=== PATIENT | female | born 1985 | race African-American/Black ===

== ENCOUNTER 2016-10-07 12:15 | Emergency (ER) | payer OTHER ==
--- NOTE | 2016-10-07 12:27 | PDOC ---
History of Present Illness - General Chief Complaint: Headache Stated Complaint: HEAD ACHE Time Seen by Provider: 10/07/16 12:19 - History of Present Illness Initial Comments: 10/07/16 12:27 Patient is a 30-year-old female, history of Graves' disease, anxiety depression and asthma. She presents to the ER with a complaint of headache since yesterday She describes her pain as ulsating She has also had palpitations (she checked her HR and noted that it was 116) She notes muscle soreness Dizziness Shivering and chills She feels tired, like she is going to fall. She drove here with her Haz[place] lights on because she was fearful that she was going to pass out Pulsating in her head worsens when she bends forward but largely has subsided No cough No dysuria (+) sore throat this am No nausea, vomiting, diarrhea Allergies: Sulfa, shrimp Medications: Synthroid, Naprosyn as needed Family History: Non-contributory Social History: Denies smoking, alcohol use, or IVDU Vital signs on arrival are notable for pulse of Temp 100.7. Review of Systems GENERAL/CONSTITUTIONAL: Yes: generalized weakness No fever or chills. No weakness. No weight change. HEAD, EYES, EARS, NOSE AND THROAT: No change in vision. No ear pain or discharge. No sore throat. Nasal congestion CARDIOVASCULAR: No chest pain or shortness of breath. Intermittent palpitations with no chest pain RESPIRATORY: Postnasal drip, nonproductive cough, no wheezing, or hemoptysis. GASTROINTESTINAL: No nausea, vomiting, diarrhea or constipation. No rectal bleeding. GENITOURINARY: No dysuria, frequency, or change in urination. MUSCULOSKELETAL: No joint or muscle swelling or pain. No neck or back pain. SKIN : No rash or easy bruising. NEUROLOGIC: Right-sided tension headache, no vertigo, loss of consciousness, or loss of sensation. PSYCHIATRIC: Anxious ENDOCRINE: No increased thirst. No abnormal weight change. HEMATOLOGIC/LYMPHATIC: No anemia, easy bleeding, or history of blood clots. ALLERGIC/IMMUNOLOGIC: No hives or skin allergy. No latex allergy. Physical Exam: GENERAL: The patient is awake, alert, and fully oriented, in no acute distress. HEAD: Normal with no signs of trauma. EYES: Pupils equal, round and reactive to light, extraocular movements intact, sclera anicteric, conjunctiva clear. ENT: Ears normal, nares patent, oropharynx clear without exudates. Moist mucous membranes. No uvula deviation. No frontal sinus pressure or pain NECK: Normal range of motion, supple without lymphadenopathy, JVD, or masses. LUNGS: Breath sounds equal, clear to auscultation bilaterally. No wheezes, and no crackles. HEART: Regular rate and rhythm, normal S1 and S2 without murmur, rub or gallop. ABDOMEN: Soft, nontender, normoactive bowel sounds. No guarding, no rebound. No masses. No bruising or abrasions RECTAL : Guaiac negative, normal rectal tone. MUSCULOSKELETAL: Normal range of motion, no edema. No clubbing or cyanosis. No cords, erythema, or tenderness. No CVA Tenderness with fist palpation. NEUROLOGICAL: Cranial nerves II through XII grossly intact. Normal speech, normal gait. PSYCH: Anxious but denies any suicidal ideation, flight ideas, feeling of hurting self or others SKIN: Warm, Dry, normal turgor, no rashes or lesions noted. 10/07/16 12:57 Past History - Past Medical History Allergies/Adverse Reactions: Allergies Allergy/AdvReac Type Severity Reaction Status Date / Time Sulfa (Sulfonamide Allergy Rash Verified 10/07/16 12:19 Antibiotics) [Sulfa(Sulfonamide Antibiotics)] SHRIMP Allergy Nausea Uncoded 12/27/15 08:33 Home Medications: Ambulatory Orders Levothyroxine [Synthroid -] 100 mcg PO DAILY 06/13/14 Thyroid Disease: Yes (HYPOthyroid) - Immunization History Immunization Up to Date: Yes - Psycho/Social/Smoking Cessation Hx Anxiety: No Suicidal Ideation: No Smoking Status: No Smoking History: Never smoked Have you smoked in the past 12 months: No Number of Cigarettes Smoked Daily: 0 Information on smoking cessation initiated: No Hx Alcohol Use: No Drug/Substance Use Hx: No Substance Use Type: None *Physical Exam - Vital Signs Last Vital Signs Temp Pulse Resp BP Pulse Ox 100.6 F H 100 H 18 100/74 100 10/07/16 12:16 10/07/16 12:16 10/07/16 12:16 10/07/16 12:16 10/07/16 12:16 ED Treatment Course - LABORATORY CBC & Chemistry Diagram: 10/07/16 12:40 10/07/16 12:40 Medical Decision Making - Medical Decision Making DD: Viral illness, 10/07/16 14:53 Laboratory Tests 10/07/16 10/07/16 10/07/16 12:33 12:40 12:40 WBC 5.7 Hgb 12.3 Hct 35.5 Plt Count 173 Sodium 132 L Potassium 3.2 L Chloride 101 Carbon Dioxide 25 BUN 9 Creatinine 0.7 Random Glucose 86 Ur Leukocyte Esterase Trace Urine RBC 20-30 Urine WBC 5-8 10/07/16 14:54 10/07/16 15:05 Strep is negative 10/07/16 15:05 10/07/16 15:06 Pt states she feel better Headache gone Muscle aches still present Will add on CPK Likely these are myalgias related to viral illness 10/07/16 15:42 Laboratory Tests 10/07/16 12:40 Creatine Kinase 236 H 10/07/16 16:08 Selected Entries 10/07/16 10/07/16 10/07/16 12:16 15:10 16:06 Temperature 100.6 F H 99 F Pulse Rate [ 89 83 Apical] Respiratory 18 18 18 Rate Blood Pressure 100/74 Blood Pressure 98/64 106/72 [Arm] O2 Sat by Pulse 100 99 99 Oximetry (%) 10/07/16 16:09 Laboratory Tests 10/07/16 12:40 Lactic Acid 0.6 Will discharge to home Follow up with PMD I discussed the physical exam findings, ancillary test results and final diagnoses with the patient. I answered all of the patient's questions. The patient was satisfied with the care received and felt comfortable with the discharge plan and treatment plan. The patient will call their primary care physician within 24 hours to arrange follow-up and will return to the Emergency Department with any new, persistent or worsening symptoms. *DC/Admit/Observation/Transfer Diagnosis at time of Disposition: Viral illness - Discharge Dispostion Disposition: HOME Condition at time of disposition: Stable Admit: No - Patient Instructions Printed Discharge Instructions: DI for Viral Syndrome Additional Instructions: Thank you for coming in to the ER today Please take medications as prescribed You can also take tylenol (1000mg - 2 extra strength Tylenol) or Motrin (600mg - 3 tablets) for fever or pain Please stay hydrated - water, gatorade, soups, teas Please return to the ER if your symptoms persist or do not improve over the next 2 -3 days OR if you develop new symptoms Please follow up with your PMD within 1 week - Post Discharge Activity Work/School Note: Back to Work
[2016-10-07 12:29] VITALS: BMI 30.7
[2016-10-07] MEDS ORDERED: SODIUM CHLORIDE 1,000 ML IV STA ×2 (12:29→16:07)
[2016-10-07] MEDS ORDERED: IBUPROFEN 800 MG/8 ML IJ IVPB ONE ×2 (12:29→12:48)
[2016-10-07 13:03] LABS: URINE APPEARANCE Clear; URINE BILIRUBIN Negative (NEGATIVE); URINE BLOOD 3+ (NEGATIVE); URINE COLOR YELLOW; URINE GLUCOSE (UA) Negative (NEGATIVE); URINE KETONE 2+ (NEGATIVE); URINE LEUK ESTERASE Trace (NEGATIVE); URINE NITRITE Negative (NEGATIVE); URINE PROTEIN 1+ (NEGATIVE); URINE UROBILINOGEN 1.0 E.U/dl (0.2-1.0)
[2016-10-07 13:21] LABS: ALBUMIN 4.3 g/dl (3.5-5.0); ALK PHOS 48 U/L (32-92); ANION GAP 6 (8-16); CALCIUM 8.7 mg/dl (8.4-10.2); CO2 25 mmol/L (22-28); CREATININE 0.7 mg/dl (0.6-1.3); GLUCOSE,RANDOM 86 mg/dl (74-106); SGOT/AST 16 U/L (10-42); SGPT/ALT 13 U/L (10-40); TOT PROT 7.6 g/dl (6.4-8.3)
[2016-10-07 13:23] LABS: BASOPHIL 0.2 % (0-2.0); MCH 29.2 pg (25.7-33.7); MCHC 34.6 g/dl (32.0-36.0); MEAN CELL VOLUME 84.6 fl (80-96); MEAN PLT VOLUME 7.9 fl (7.5-11.1); NEUTROPHILS 70.2 % (42.8-82.8); PLATELET COUNT 173 K/MM3 (134-434); RDW 13.3 % (11.6-15.6); WHITE BLOOD COUNT 5.7 K/mm3 (4.0-10.8)
[2016-10-07 13:48] LABS: URINE RBC 20-30 /hpf (0-3)
[2016-10-07 13:49] LABS: URINE BACTERIA FEW /hpf (NEGATIVE); URINE MUCUS 1+
[2016-10-07] MEDS ORDERED: POTASSIUM CHLORIDE TABS 20 MEQ TABLET.ER (FP) PO ONE ×2 (15:04→15:05)
[2016-10-07 15:23] VITALS: TEMP 99
[2016-10-07 15:33] LABS: CPK(DFH) 236 IU/L (26-140)
[2016-10-07 16:06] VITALS: PULSE 83
[2016-10-07 16:11] VITALS: BP 98/64
--- NOTE | 2016-10-09 17:29 | PDOC ---
Patient Follow-up (Call Back) - Post ED Follow - Up Condition at time of discharge: Stable Disposition at time of original discharge: HOME Reason for Call Back: Abnwl. Microbiology - Disposition Additional Instructions/Notes: Pt called for her strep results. +For group F beta hemolytic strep. Will treat with augmentin. Decadron 10 mg x1 for throat irritation, as she states it has been difficult to eat. Counseled her to return if she does not start to see improvement s/p steroids and at least 2 days of abx.
== END 2016-10-07 16:23 | disposition home or self-care (01) ==
LOC: FER 12:15
PROC: 3E033GC Introduction of Other Therapeutic Substance into Peripheral Vein, Percutaneous Approach (ICD-10-PCS; principal; 2016-10-07)
PROC: 3E0337Z Introduction of Electrolytic and Water Balance Substance into Peripheral Vein, Percutaneous Approach (ICD-10-PCS; 2016-10-07)
DX: B34.9 Viral infection, unspecified (principal); O90.6 Postpartum mood disturbance; J45.909 Unspecified asthma, uncomplicated; E05.00 Thyrotoxicosis with diffuse goiter without thyrotoxic crisis or storm
CPT/HCPCS: 36415; 71010-TC; 80053; 81003; 81015; 82550; 82553; 83605; 84703; 85025; 87040; 87070; 87077; 87086; 87430; 96361; 96374; 99284-25

== ENCOUNTER 2016-11-29 11:55 | Emergency (ER) | payer OTHER ==
--- NOTE | 2016-11-29 12:02 | PDOC ---
History of Present Illness - General Chief Complaint: Pain Stated Complaint: H/O ABD CRAMPING, MOUTH ULCER Time Seen by Provider: 11/29/16 12:02 History Source: Patient - History of Present Illness Initial Comments: 11/29/16 12:21 pt presents to the ED complaining of abdominal cramping and profuse watery diarrhea that have now resolved. Duane has a 17 month old daughter who was sick atthe same time. Denies fever, nausea or vomiting. Diarrhea began on Wednesday and resolved yesterday. Now has no abdominal complaints. Presents today because she has a sore in her mouth that has been present for the last two days and is painful when she eats or smiles. Past History - Past Medical History Allergies/Adverse Reactions: Allergies Allergy/AdvReac Type Severity Reaction Status Date / Time shrimp Allergy Verified 11/29/16 12:00 Sulfa (Sulfonamide Allergy Verified 11/29/16 12:00 Antibiotics) Home Medications: Ambulatory Orders Levothyroxine [Synthroid -] 100 mcg PO DAILY 06/13/14 Thyroid Disease: Yes (HYPOthyroid) Comment:: 11/29/16 12:33 history of grave's disease, on synthroid for hypothyroidism. - Immunization History Immunization Up to Date: Yes - Psycho/Social/Smoking Cessation Hx Anxiety: No Suicidal Ideation: No Smoking Status: No Smoking History: Never smoked Have you smoked in the past 12 months: No Number of Cigarettes Smoked Daily: 0 Hx Alcohol Use: No Drug/Substance Use Hx: No Substance Use Type: None Review of Systems - Review of Systems Able to Perform ROS?: Yes Is the patient limited [place] proficient: No Constitutional: No: Symptoms Reported, See HPI, Chills, Diaphoresis, Fever, Loss of Appetite, Malaise, Night Sweats, Weakness, Weight Stable, Unintentional Wgt. Loss, Unexplained wgt Loss, Other HEENTM: Yes: Mouth Pain (complaining of two small sores on the inside of her mouth. ) Respiratory: No: Symptoms reported, See HPI, Cough, Orthopnea, Shortness of Breath, SOB with Exertion, SOB at Rest, Stridor, Wheezing, Productive cough, Hemoptysis, Other Cardiac (ROS): No: Symptoms Reported, See HPI, Chest Pain, Edema, Irregular Heart Rate, Lightheadedness, Palpitations, Syncope, Chest Tightness, Other ABD/GI: Yes: Diarrhea (now resolved), Abdominal cramping (now resolved). No: Symptoms Reported, See HPI, Abdominal Distended, Abd. Pain w/ defecation, Blood Streaked Bowels, Constipated, Difficulty Swallowing, Nausea, Poor Appetite, Poor Fluid Intake, Rectal Bleeding, Vomiting, Indigestion, Tarry Stools, Other : No: Symptoms Reported, See HPI, Burning, Dysuria, Discharge, Frequency, Flank Pain, Hematuria, Incontinence, Pain, Urgency, Lesions, Other Integumentary: No: Symptoms Reported, See HPI, Bruising, Change in Color, Change in Hair/Nails, Dryness, Erythema, Flushing, Lesions, Lumps, Pallor, Pruritus, Rash, Sweating, Other All Other Systems: Reviewed and Negative *Physical Exam - Physical Exam General Appearance: Yes: Nourished, Appropriately Dressed. No: Apparent Distress, Disheveled, Mild Distress, Moderate Distress, Severe Distress, Alcohol on Breath, Intoxicated, Cachetic, Obese, Thin, Other HEENT: positive: Lesions (vesicular lesion on erythematous base consistent with herpes) Neck: positive: Supple Respiratory/Chest: positive: Lungs Clear, Normal Breath Sounds Gastrointestinal/Abdominal: positive: Normal Bowel Sounds, Flat, Soft. negative : Tender, Organomegaly, Pulsatile Mass, Increased Bowel Sounds, Decreased BS, Protuberent, Distended, Guarding, Rebound, Tenderness, Hernia, Mass, Hepatomegaly, Spleenomegaly, Other Musculoskeletal: positive: Normal Inspection Integumentary: positive: Normal Color, Dry, Warm Neurologic: positive: Fully Oriented, Alert, Normal Mood/Affect Medical Decision Making - Medical Decision Making 11/29/16 12:36 Pt presents to the ED complaining of abdominal pain and diarrhea that have now completely resolved and mouth sores consistent with HSV. Well appearing in the ED with no other complaints. U preg is negative. Will discharge home with acyclovir for HSV. *DC/Admit/Observation/Transfer Diagnosis at time of Disposition: Herpes - Discharge Dispostion Disposition: HOME Condition at time of disposition: Good - Patient Instructions Printed Discharge Instructions: DI for Cold Sores
[2016-11-29 12:07] VITALS: BP 125/82; PULSE 87; TEMP 97.9; BMI 29.8
== END 2016-11-29 12:50 | disposition home or self-care (01) ==
LOC: FER 11:55
DX: B00.9 Herpesviral infection, unspecified (principal); E03.9 Hypothyroidism, unspecified
CPT/HCPCS: 84703; 99284-25

== ENCOUNTER 2018-09-10 07:58 | Emergency (ER) | payer OTHER | END 2018-09-10 11:05 | disposition home or self-care (01) | LOC: JER 07:58 ==

== ENCOUNTER 2019-01-08 00:15 | Emergency (ER) | payer OTHER ==
[2019-01-08 00:22] VITALS: BP 121/67; PULSE 76; TEMP 98.1; BMI 30.7
--- NOTE | 2019-01-08 02:01 | PDOC ---
Attending Attestation - Resident Resident Name: Ashvin Monique - ED Attending Attestation I have performed the following: I have examined & evaluated the patient, The case was reviewed & discussed with the resident, I agree w/resident's findings & plan - HPI HPI: 01/08/19 02:04 Pt is ; in Jun 2015; she is 21 weeks currently and complaining odf Vomiting and diarrhea and dysuria; She was seen already by [facility], cervix is long and closed and her fetus looks well. Pt has a UA that reveals ketones. - Physicial Exam PE: 01/08/19 06:09 Normal exam. Gassy abdomen; Slightly distended. No flank pain and no rebound and no guarding Afebrile Normal exam Pt appears well Agree with resident exam - Medical Decision Making 01/08/19 02:05 Pt will have basic labs here and she will be hydrated. If stable she will be discharged home.
[2019-01-08] MEDS ORDERED: LACTATED RINGERS SOLUTION 1000 ML INFUS.BAG IV ONE (02:04)
[2019-01-08 02:25] LABS: BASO % 0.3 % (0-2.0); EOS % 1.7 % (0-4.5); HEMOGLOBIN 10.2 GM/dL (10.7-15.3); MCH 29.4 pg (25.7-33.7); MCHC 32.7 g/dl (32.0-36.0); MEAN CELL VOLUME 89.8 fl (80-96); MEAN PLT VOLUME 7.5 fl (7.5-11.1); PLATELET COUNT 199 K/MM3 (134-434); RBC 3.46 M/mm3 (3.60-5.2); RDW 14.3 % (11.6-15.6); WHITE BLOOD COUNT 5.9 K/mm3 (4.0-10.0)
[2019-01-08] MEDS ORDERED: METOCLOPRAMIDE HCL INJECTION 10 MG/2 ML VIAL IVPUSH ONE (02:28)
[2019-01-08] MEDS ORDERED: METOCLOPRAMIDE HCL INJECTION 10 MG/2 ML VIAL ONE (02:34)
--- NOTE | 2019-01-08 02:42 | PDOC ---
History of Present Illness - General Chief Complaint: Pain, Acute Stated Complaint: STOMACH PAIN/ 21WKS Time Seen by Provider: 01/08/19 01:59 History Source: Patient, Significant Other (Male partner at bedside.), Other (L& D Department encounter) Exam Limitations: No Limitations - History of Present Illness Initial Comments: HPI: 33 y/o female presenting to [facility] ER after being evaluated in the [facility] L&D department. Pt is complaining of four months of acute on chronic lower abdominal pain with sensation of bloating, nausea, infrequent vomiting, and reflux symptoms. Currently 21 weeks , last ultrasound performed (05 Jan 2019); reportedly normal. monitoring performed tonight in L&D; reportedly normal. Pt was also evaluated in GI clinic but told there was very little that could be done for her while she is . No significant change in symptoms tonight, rather failure to resolve and frustration that multiple different providers have not been able to provide relief. OBGYN: [facility] OBGYN Hx: A0, full term complicated by failure to dilate Medical Hx: - Graves Disease, managed with Synthroid - S/p Review of Systems: In addition to that documented in the HPI above, the additional ROS was obtained : Constitutional: Denies fevers or chills ENMT: Denies sore throat CV: Denies chest pain Resp: Denies SOB GI: Endorses occasional vomiting and constipation diarrhea : Denies dysuria, hematuria, or urinary frequency Physical Examination: Constitutional: Well-developed, well-nourished adult female in no acute distress or obvious discomfort. Found asleep in semi-fowlers position on hospital bed. Easily arousable to voice. Answered all questions appropriately and completely. Speech was non-labored, non-pressured. Head: Normocephalic. No obvious external signs of trauma. Cardiovascular / Chest: Regular rate and regular rhythm. No murmur, rubs, clicks , or gallops. Peripheral pulses: radial pulses full. Respiratory: Breathing unlabored. Equal chest rise and fall. Clear to auscultation bilaterally. No stridor, no wheezing, no rhonchi. Gastrointestinal: Gravid abdomen. Soft, nondistended, and nontender. No overlying skin lesions. Neuro: Alert and oriented x4. Moving all four extremities spontaneously. Skin: Warm, dry, and intact. Psych: Affect: appropriate. Mood: normal. MDM: *Reviewed vital signs, nursing notes, and prior visit documentation (if available). 33 y/o female presenting with acute on chronic abdominal pain vs bloating with nausea/vomiting and reflux symptoms. L&D reports unremarkable evaluation. Afebrile. Vitals unremarkable for hypotension or tachycardia. Physical exam as described above. No acute abdominal signs. Suspect pain is likely secondary to round ligament pain. Bloating is possibly secondary to dairy intake with known lactose intolerance. Ordered Reglan and LR bolus for symptom relief. ED Attending re-evaluated the pt, as well as provided return precautions and follow up instructions. Ashvin Monique M.D., PGY2 Emergency Medicine Resident Past History - Past Medical History Allergies/Adverse Reactions: Allergies Allergy/AdvReac Type Severity Reaction Status Date / Time shrimp Allergy Verified 01/08/19 00:18 Sulfa (Sulfonamide Allergy Verified 01/08/19 00:18 Antibiotics) Home Medications: Ambulatory Orders Levothyroxine [Synthroid -] 100 mcg PO DAILY 06/13/14 Pnv,Calcium 72/Iron/Folic Acid [ Vitamin with Low Iron] 1 each PO DAILY #30 tablet 09/10/18 COPD: No Thyroid Disease: Yes (HYPOthyroid) - Immunization History Immunization Up to Date: Yes - Psycho Social/Smoking Cessation Hx Smoking Status: No Smoking History: Never smoked Have you smoked in the past 12 months: No Number of Cigarettes Smoked Daily: 0 Information on smoking cessation initiated: No Hx Alcohol Use: No Drug/Substance Use Hx: No Substance Use Type: None *Physical Exam - Vital Signs Last Vital Signs Temp Pulse Resp BP Pulse Ox 98.1 F 76 20 121/67 99 01/08/19 00:19 01/08/19 00:19 01/08/19 00:19 01/08/19 00:19 01/08/19 00:19 ED Treatment Course - LABORATORY CBC & Chemistry Diagram: 01/08/19 02:15 01/08/19 02:15 - ADDITIONAL ORDERS Additional order review: 01/08/19 02:15 RBC 3.46 L MCV 89.8 MCHC 32.7 RDW 14.3 MPV 7.5 Neutrophils % 64.0 Lymphocytes % 22.0 Monocytes % 12.0 H Eosinophils % 1.7 D Basophils % 0.3 Discharge - Discharge Information Problems reviewed: Yes Clinical Impression/Diagnosis: Abdominal pain affecting , with 21 completed weeks gestation Nausea and vomiting Qualifiers: Vomiting type: unspecified Vomiting Intractability: non-intractable Qualified Code(s): R11.2 - Nausea with vomiting, unspecified Condition: Improved Disposition: HOME - Admission No - Follow up/Referral - Patient Discharge Instructions Patient Printed Discharge Instructions: Common Discomforts and Bodily Changes During , DI for Abdominal Pain -- Early Additional Instructions: You were seen by both the Labor and Delivery Department and the Emergency Department for abdominal pain with nausea and vomiting. Your babys heart rate was normal. Your blood and urine tests were both normal. Your symptoms may be related to ligament stretching from the . Make sure to stay hydrated over the next several days! Stop eating diary as this will make your symptoms worse! You can take over the counter Tylenol as needed for pain. Take as directed on the package insert. Do not exceed the recommended dosage. Follow up with your OBGYN within the next 3-4 days. You will need to call to make an appointment. A copy of todays results are attached to this packet. Take it to the appointment so your doctor can review them. Go to the nearest emergency department if your condition worsens or you feel like you need additional emergency evaluation. Print Language: MEXICAN - Post Discharge Activity Work/Back to School Note: Back to Work
[2019-01-08 03:02] LABS: ALBUMIN 2.7 g/dl (3.4-5.0); BILIRUBIN,TOTAL 0.2 mg/dL (0.2-1); BLOOD UREA NITROGEN 9.2 mg/dL (7-18); CALCIUM 8.2 mg/dL (8.5-10.1); CREATININE 0.5 mg/dL (0.55-1.3); POTASSIUM 3.7 mmol/L (3.5-5.1); TOT PROT 6.1 g/dl (6.4-8.2)
== END 2019-01-08 05:05 | disposition home or self-care (01) ==
LOC: JER 00:15
PROC: 3E033GC Introduction of Other Therapeutic Substance into Peripheral Vein, Percutaneous Approach (ICD-10-PCS; principal; 2019-01-08)
DX: O26.892 Other specified pregnancy related conditions, second trimester (principal); R10.9 Unspecified abdominal pain; R11.2 Nausea with vomiting, unspecified; O99.282 Endocrine, nutritional and metabolic diseases complicating pregnancy, second trimester; E03.9 Hypothyroidism, unspecified; Z3A.21 21 weeks gestation of pregnancy; Z88.2 Allergy status to sulfonamides; Z91.013 Allergy to seafood
CPT/HCPCS: 36415; 80053; 83690; 85025; 96374; 99283-25

== ENCOUNTER 2021-12-04 12:53 | Emergency (ER) | payer OTHER ==
[2021-12-04 12:57] VITALS: BP 120/85; PULSE 71; RESP 18; TEMP 98; BMI 32.5
== END 2021-12-04 15:10 | disposition home or self-care (01) ==
LOC: JERFT 12:53
DX: M25.571 Pain in right ankle and joints of right foot (principal)
CPT/HCPCS: 99283-25

== ENCOUNTER 2022-04-14 11:12 | Emergency (ER) | payer OTHER ==
[2022-04-14 11:30] VITALS: BP 115/71; PULSE 75; RESP 20; TEMP 97.7; BMI 32.3
[2022-04-14] MEDS ORDERED: DEXAMETHASONE SOD PHOSPHATE 10 MG/1 ML VIAL PO ONE (13:42)
[2022-04-14] MEDS: ALBUTEROL SO4 2.5/IPRATROPIUM 0.5 INH SOL 3 ML VIAL.NEB. NEB SCH ×3 (13:45→14:29)
[2022-04-14] MEDS ORDERED: ALBUTEROL SO4 2.5/IPRATROPIUM 0.5 INH SOL 3 ML VIAL.NEB. NEB ONE (14:06)
[2022-04-14] MEDS ORDERED: DEXAMETHASONE SOD PHOSPHATE 10 MG/1 ML VIAL ONE (14:06)
== END 2022-04-14 15:57 | disposition home or self-care (01) ==
LOC: JER 11:12
PROC: 3E0F7GC Introduction of Other Therapeutic Substance into Respiratory Tract, Via Natural or Artificial Opening (ICD-10-PCS; principal; 2022-04-14)
DX: J20.9 Acute bronchitis, unspecified (principal)
CPT/HCPCS: 0241U-QW; 99283-25; J1100